=== PATIENT | female | born 1960 | race African-American/Black ===

== ENCOUNTER 2024-07-10 03:37 | Emergency (ER) | payer BC, SELFPAY ==
[2024-07-10 03:40] VITALS: BP 144/77
[2024-07-10 04:49] VITALS: BP 137/78; BMI 30.4
--- NOTE | 2024-07-10 04:54 | EDRN ---
Pt has had L neck, shoulder and upper arm pain x 3 days. No known injury, heavy lifting, exercising. Pain comes and goes, was more severe yesterday and woke pt around 0200 at which time she says her mouth 'felt weird.' Pt has been taking
ibuprofen for this pain which helps the pain - last dose 2200 last night. Pt has chronic lower back pain and says it is unchanged from her usual. Pt adds she has had epigastric pain since last week that comes and goes, most often noted after
eating. Pt ate a salad last night and says she noted pain afterwards. Appetite normal. Pt drank prune juice to help with this pain and says it did not do anything. Pt tried taking pepic AC prior to eating and it did not help. No recent air
travel/long car rides. Pt denies cp, sob, n/v/d/c, urinary symptoms, headache, fever/chills/cough, weakness, dizziness.
--- NOTE | 2024-07-10 04:58 | ED.GENMED ---
History of Present Illness
<FIOR Rivera - Last Filed: 07/11/24 03:33>
General
Chief Complaint: Musculo-Skeletal Complaint
Source: patient
Time Seen by Provider: 07/10/24 04:56
History of Present Illness
History of Present Illness:
A 64-year-old female with a past medical history of migraine hypertension and anemia presents to the emergency department with neck pain for 3 days. She states that the pain covers the left side of her neck her left shoulder and her left arm. She
states that the pain has happened before, occurring multiple times over the last 3 years. She states that over the past 3 years she usually takes ibuprofen which helps to alleviate the symptoms but this time she woke up with 10 out of 10 pain which
was refractory to ibuprofen administration.This time around she describes the pain as sharp and burning with the addition of numbness of the face which began today but has subsided prior to ED arrival.
Patient has a past medical history of hypertension which is well-controlled on amlodipine and losartan. She also has a past medical history of migraine which is controlled with rizatriptan. She has an extensive history of left-sided arm pain and
weakness over the last 3 years all of which point to radiculopathy or atypical migraine.
Past History
<FIOR Rivera - Last Filed: 07/11/24 03:33>
Past History
ED Past Medical History: HTN, Hypercholesterolemia, Psychiatric (Anxiety ) and Other (Anemia, migraines, chronic middle back pain)
ED Past Surgical History:
Social History
Tobacco: Non-smoker
Alcohol: None
Drug: None
Personal:
Living: with family
Employment: Employed
Family History
Family History: Hypertension; Negative CAD
Review of Systems
<FIOR Rivera - Last Filed: 07/11/24 03:33>
Review of Systems
Allergies reviewed?: Yes
Unable to obtain full review of systems at this time due to: dementia
Constitutional: Reports no symptoms
EENT: Reports no symptoms
Respiratory: Reports no symptoms
Cardiac: Reports no symptoms
ABD/GI: Reports no symptoms
: Reports no symptoms
Musculoskeletal: Reports no symptoms
Skin: Reports no symptoms
Neurological: Reports no symptoms
Endocrine: Reports no symptoms
Hematologic/Lymphatic: Reports no symptoms
Psychiatric: Reports no symptoms
Phy Exam
<FIOR Rivera - Last Filed: 07/11/24 03:33>
General Physical Exam
General Presentation: well appearing, mild distress and other (in pain)
General age: appears stated age
General Skin: warm and dry
General Habitus: normal and obese
General Mental: alert
General Hydration: appears well hydrated
Eye Exam
Eye Exam: PERRL
Cardiovascular Exam
Cardiovascular Exam: regular rate/rhythm, no edema, no gallop, no murmur and normal peripheral pulses
Heart Sounds: normal
Pulmonary Exam
Pulmonary Exam: lungs clear, no respiratory distress, no rales, no crackles and no wheezing
Neurological Exam
Neurological Exam: alert and oriented x3
Musculoskeletal Exam
Musculoskeletal Exam: no edema, neuro vasc intact and other (5/5 shoulder strength to flexion and extension, bilaterally 5/ 5 wrist extension and flexion bilaterally Extreme tenderness to palpation on C4-C6 dermatomes on left arm. Sensation to light
touch to C4-C6 dermatomes is intact, bilaterally)
Skin Exam
Skin Exam: normal color, warm/dry and no rash
Course
<FIOR Rivera - Last Filed: 07/11/24 03:33>
Orders/Labs/Results
Orders:
Orders
07/10/24 06:06
Ketorolac [Toradol] 30 mg IV NOW STA
Pantoprazole [Protonix IV] 40 mg IV NOW STA
diazePAM [Valium Injection] 5 mg IV NOW STA
07/10/24 06:07
Electrocardiogram (*1) Urgent
Reason for Study: Abdominal Pain
EKG- Treatment ONCE
07/10/24 06:18
Complete Blood Count/With Diff Urgent
Comprehensive Metabolic Panel Urgent
Lipase Urgent
Abnormal Lab Results
07/10/24
06:18
MCH 26.7 L pg
(27.0-31.0)
MCHC 32.4 L g/dL
(33.0-37.0)
MPV 10.6 H fL
(7.4-10.4)
07/10/24 06:18
07/10/24 06:18
Vital Signs
Initial and Last Documented VS:
Initial Vital Signs
Temp Pulse Resp BP Pulse Ox
97.7 F 78 16 144/77 100
07/10/24 03:40 07/10/24 03:40 07/10/24 03:40 07/10/24 03:40 07/10/24 03:40
Last Documented Vital Signs
Temp Pulse Resp BP Pulse Ox
97.7 F 67 18 106/66 99
07/10/24 03:40 07/10/24 07:58 07/10/24 07:58 07/10/24 07:58 07/10/24 07:58
<Rylie Mckeon DO - Last Filed: 07/10/24 07:52>
Orders/Labs/Results
Orders:
Orders
07/10/24 06:06
Ketorolac [Toradol] 30 mg IV NOW STA
Pantoprazole [Protonix IV] 40 mg IV NOW STA
diazePAM [Valium Injection] 5 mg IV NOW STA
07/10/24 06:07
Electrocardiogram (*1) Urgent
Reason for Study: Abdominal Pain
EKG- Treatment ONCE
07/10/24 06:18
Complete Blood Count/With Diff Urgent
Comprehensive Metabolic Panel Urgent
Lipase Urgent
Abnormal Lab Results
07/10/24
06:18
MCH 26.7 L pg
(27.0-31.0)
MCHC 32.4 L g/dL
(33.0-37.0)
MPV 10.6 H fL
(7.4-10.4)
07/10/24 06:18
07/10/24 06:18
Vital Signs
Initial and Last Documented VS:
Initial Vital Signs
Temp Pulse Resp BP Pulse Ox
97.7 F 78 16 144/77 100
07/10/24 03:40 07/10/24 03:40 07/10/24 03:40 07/10/24 03:40 07/10/24 03:40
Last Documented Vital Signs
Temp Pulse Resp BP Pulse Ox
97.7 F 67 18 106/66 99
07/10/24 03:40 07/10/24 07:58 07/10/24 07:58 07/10/24 07:58 07/10/24 07:58
<FIOR Rivera - Last Filed: 07/11/24 03:33>
*Critical Care Note
Total Time (30-74mins, 75-104mins- exclusive of procedures): Not Applicable
<Rylie Mckeon DO - Last Filed: 07/10/24 07:52>
*Pulse Oximetry
Patient hypoxic: no
*EKG
Interpreted by ED Provider?: Yes
Interpretation: normal
Comparison EKG: no changes (Unchanged from previous May 2023)
Rate: normal
Rhythm: sinus
[place]: normal axis
Interval: normal interval
QRS Pattern: normal QRS
Ischemia: no ischemia
ED Attending Note
<FIOR Rivera - Last Filed: 07/11/24 03:33>
-
Portions of this chart may have been created with voice recognition software.� Occasional wrong word or��sound alike� substitutions may have occurred due to the inherent limitations of voice recognition software.
<Rylie Mckeon DO - Last Filed: 07/10/24 07:52>
ED Attending Note
Patient seen and examined by attending physician: Yes
I performed the substantive portion of visit, reviewed & personally made and approve the management plan that is documented in note by myself or JILL.: Yes
ED Attending Note:
This is a 64-year-old woman with history of hypertension, migraine headaches with history of intermittent left lateral neck to left shoulder pain for which she was hospitalized April [address] of the head, MRI of the brain,
CTA of the head and neck. At that time concern for atypical migraine.
She then returned 1 month later with complaints of left shoulder pain, left scapula and left upper chest pain. CT angiogram of the chest was unremarkable. Relief with Toradol.
She presents this morning with 3-day history of left shoulder pain that radiates to her left lateral neck. Pain radiates down her left arm, is worse with movement of her arm. No insightful injury. She denies headache, denies weakness, no fever
nor chills. No insightful injury nor fall. She is right-hand dominant.
She has been taking ibuprofen with mild to moderate temporary relief until tonight when ibuprofen did not seem to be helpful.
She also notes some epigastric discomfort, somewhat chronic issue but worse over the past few days. No nausea nor vomiting. No diarrhea nor constipation. She denies black or tarry stools. No chest pain, no cough no shortness of breath.
GENERAL: 64-year-old woman appears her stated age, lying on her right side, appears in no acute distress. is accompanying.
EYE: anicteric
NECK: Supple, no midline bony tenderness. Mild tenderness left posterior paracervical region with mild palpable muscular ropiness. There is moderate tenderness left superior trapezius over palpable muscle spasm. No meningismus, no significant
adenopathy.
ENT:oral mucosa is moist. No rhinorrhea.
CARDIAC: Regular rate and rhythm. no murmur. No rub.
LUNGS: Clear breath sounds bilaterally, no acute respiratory distress, no wheezes/rales/rhonchi
ABDOMEN: Soft, nondistended, mild tenderness epigastric region with deep palpation only, no r/g, no cvat. normoactive BS.
NEUROLOGICAL: Alert and oriented x3, no focal neuro deficits. Motor strength is 5/5 bilaterally. Gross sensation is intact.
SKIN: Warm and dry, normal color, skin intact. No rash.
MUSCULOSKELETAL: No C/C/E. peripheral pulses are full and equal b/l. No palpable tenderness to the left shoulder nor upper arm. Full shoulder range of motion with increased superior left trapezius muscle pain with abduction greater than 90 degrees.
PSYCH: Normal and appropriate interaction.
History and exam most consistent with musculoskeletal superior trapezius pain. Less likely ACS.
Extensive neurologic and cardiac, Vascular workup in the past that have all been unremarkable.
She does have an element of epigastric discomfort that has apparently been an ongoing issue but with recent NSAIDs much consider gastritis, other consideration is pancreatitis.
Will check EKG, labs and will medicate with Toradol and Valium. At this point no indication for imaging.
07/10/2024 0738 AM
EKG is unremarkable, unchanged from previous.
Labs are all within normal limits.
Patient feeling markedly improved after Toradol and Valium, resting comfortably.
Will discharge to home with prescription for short course of Celebrex, Protonix for GI protection as well as a short course of at bedtime Valium.
Recommend supportive measures, local heat, rest.
Prompt follow-up with PCP for recheck.
Discharge Plan
Departure
Patient Disposition: Home (Routine Discharge)
Date of Disposition: 07/10/24
Time of Disposition: 07:43
Patient with high blood pressure during this ER visit?: No
Condition: Good
Discharge Problem:
Acute left trapezius myofascitis, Gastritis
Instructions: Muscle Strain (DC), Neck Stretches, Gastritis ED
Prescriptions:
New
celecoxib [Celebrex] 200 mg capsule
200 mg PO BID Qty: 30 0RF
pantoprazole [Protonix] 40 mg tablet,delayed release (DR/EC)
40 mg PO DAILY Qty: 30 0RF
diazepam [Valium] 5 mg tablet
5 mg PO HS PRN (Reason: muscle spasm) Qty: 7 0RF
No Action
losartan 50 MG tablet
50 mg PO DAILY
aspirin 81 MG tablet,delayed release (DR/EC)
81 mg PO DAILY
amlodipine 5 mg Tablet
5 mg PO DAILY
Referrals:
Rosio Harrington, [Family Provider] - Call in 1-3 days for appt
Interventions
Interventions:
*Risk Screen - Suicide Last Done: 07/10/24 03:40
*General Assessment Last Done: 07/10/24 04:49
*Neglect/Abuse Screening Last Done: 07/10/24 03:40
ED- Fall Risk Assessment Last Done: 07/10/24 04:49
*ED COVID-19 Vaccine History Last Done: 07/10/24 04:49
*Nursing Disposition Last Done: 07/10/24 08:08
ED-Musculoskeletal Assessment Last Done: 07/10/24 04:49
Discharge Date and Time
Discharge Date/Time: 07/10/24 08:09
Print Language: GEORGI[place]
[2024-07-10 05:00] VITALS: BP 145/80
[2024-07-10] MEDS: PROTONIX IV 40 MG IV (06:21)
[2024-07-10] MEDS: TORADOL 30 MG IV (06:23)
[2024-07-10] MEDS: VALIUM INJECTION 5 MG IV (06:25)
[2024-07-10 06:30] VITALS: BP 131/73
[2024-07-10 06:31] LABS: % Basophils 1.1 % (0-2); % Eosinophils 2.9 % (0-6); % Immature Granulocytes 0.4 % (0-0.5); % Lymphocytes 40.2 % (20.5-51.1); % Monocytes 6.9 % (1.7-9.3); % Neutrophils 48.5 % (42.2-75.2); Absolute Basophils 0.1 10^3/uL (0-0.2); Absolute Eosinophils 0.1 10^3/uL (0-0.7); Absolute Lymphocytes 1.9 10^3/uL (1.2-3.4); Absolute Monocytes 0.3 10^3/uL (0.1-0.6); Absolute Neutrophils 2.3 10^3/uL (1.4-6.5); Hematocrit 40.4 % (37.0-47.0); Hemoglobin 13.1 g/dL (12.0-16.0); Mean Corp Hgb Conc. 32.4 g/dL (33.0-37.0); Mean Corpuscular Hgb 26.7 pg (27.0-31.0); Mean Corpuscular Volume 82.3 fL (81.0-99.0); Mean Platelet Volume 10.6 fL (7.4-10.4); Nucleated Red Blood Cells % 0 %; Platelet Count 231 10^3/uL (130-400); Red Blood Cell Count 4.91 10^6/uL (4.20-5.40); Red Cell Dist. Width 13.9 % (11.5-14.5); White Blood Cell Count 4.8 10^3/uL (4.8-10.8)
[2024-07-10 06:46] LABS: ALT (SGPT) 28 U/L (0-35); AST (SGOT) 31 U/L (14-36); Albumin 4.6 g/dl (3.5-5.0); Alkaline Phosphatase 91 U/L (38-126); Blood Urea Nitrogen 13 mg/dl (7-17); Calcium 10.1 mg/dl (8.4-10.2); Carbon Dioxide 28 mmol/L (22-30); Chloride 106 mmol/L (98-107); Estimated Creatinine Clearance 76 ml/min; Glucose 99 mg/dl (70-99); Lipase 109 U/L (23-300); Potassium 4.5 mmol/L (3.5-5.1); Sodium 144 mmol/L (135-145); Total Bilirubin 0.4 mg/dl (0.2-1.3); Total Protein 7.3 g/dl (6.3-8.2); eGFR > 60.00
[2024-07-10 07:58] VITALS: BP 106/66
== END 2024-07-10 08:09 | disposition home or self-care (01) ==
LOC: EMR 03:37
PROVIDERS: EMERGENCY PHYSICIAN Emergency Medicine; FAMILY PHYSICIAN Family Medicine
DX: M60.9 Myositis, unspecified (principal); K29.70 Gastritis, unspecified, without bleeding; I10 Essential (primary) hypertension
CPT/HCPCS: 99284; 96374; 96375 ×2; 80053; 83690; 85025; 93005

== ENCOUNTER 2024-12-18 21:18 | Emergency (ER) | payer SELFPAY ==
[2024-12-18 21:23] VITALS: BP 171/84
--- NOTE | 2024-12-18 23:50 | ED.GENMED ---
History of Present Illness
General
Chief Complaint: Head Injury
Source: patient
Time Seen by Provider: 12/18/24 23:41
History of Present Illness
History of Present Illness:
64-year-old female presents to the emergency room complaining of headache, blurred vision after striking her head yesterday. 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 No loss of consciousness that the patient
has not felt herself since then. Headache seems worse today than yesterday. No nausea, vomiting, focal weakness. Patient does not take any oral anticoagulants.
Past History
Past History
ED Past Medical History: HTN, Hypercholesterolemia, Psychiatric (Anxiety ) and Other (Anemia, migraines, chronic middle back pain)
ED Past Surgical History:
Social History
Tobacco: Non-smoker
Alcohol: None
Drug: None
Personal:
Living: with family
Employment: Employed
Family History
Family History: Hypertension; Negative CAD
Phy Exam
Physical Exam
Physical Exam:
General: Awake, Alert, Oriented X3. No acute distress.
Vitals: unremarkable
Head: Atraumatic
Eyes: Pupils equal, EOMI
Throat: Airway intact, no exudates
Neck: Trachea midline, no tenderness to palpation of the midline cervical spine
Lungs: Clear and equal b/l
Heart: Regular rate, no murmurs
Abd: Soft, Nontender, No pulsatile mass
Neuro: Cranial nerves intact, muscle strength equal bilaterally, cerebellar exam normal
Skin: Warm, dry, no rash
Extremities: pulses equal b/l, no edema
Course
Orders/Labs/Results
Orders:
Orders
12/19/24 00:30
CT Head W/o Iv Contrast Urgent
Reason For Exam: head injury
Vital Signs
Initial and Last Documented VS:
Initial Vital Signs
Temp Pulse Resp BP Pulse Ox
98.1 F 82 20 171/84 99
12/18/24 21:23 12/18/24 21:23 12/18/24 21:23 12/18/24 21:23 12/18/24 21:23
Last Documented Vital Signs
Temp Pulse Resp BP Pulse Ox
98.1 F 70 16 139/69 99
12/18/24 21:23 12/19/24 00:46 12/19/24 00:46 12/19/24 00:46 12/19/24 00:46
MDM/Problems Addressed
Differential Diagnosis Includes:
Contusion, concussion, subdural
MDM/Problems Addressed:
Head CT shows no acute abnormalities. Patient stable for discharge home
Chronic conditions affecting care: HTN
*Radiology
Radiology exam reviewed: radiology read reviewed
*Pulse Oximetry
Patient hypoxic: no
*Critical Care Note
Total Time (30-74mins, 75-104mins- exclusive of procedures): Not Applicable
ED Attending Note
-
Portions of this chart may have been created with voice recognition software.� Occasional wrong word or��sound alike� substitutions may have occurred due to the inherent limitations of voice recognition software.
Discharge Plan
Departure
Patient Disposition: Home (Routine Discharge)
Date of Disposition: 12/19/24
Time of Disposition: 01:05
Patient with high blood pressure during this ER visit?: Yes
Condition: Good
Discharge Problem:
Head injury
Instructions: Head Injury in Adults (DC), BLOOD PRESSURE
Prescriptions:
No Action
losartan 50 MG tablet
50 mg PO DAILY
aspirin 81 MG tablet,delayed release (DR/EC)
81 mg PO DAILY
amlodipine 5 mg Tablet
5 mg PO DAILY
celecoxib [Celebrex] 200 mg capsule
200 mg PO BID Qty: 30 0RF
pantoprazole [Protonix] 40 mg tablet,delayed release (DR/EC)
40 mg PO DAILY Qty: 30 0RF
diazepam [Valium] 5 mg tablet
5 mg PO HS PRN (Reason: muscle spasm) Qty: 7 0RF
Referrals:
Rosio Harrington DO [Family Provider] -
Stand Alone Forms: Return to Work
Interventions
Interventions:
*Risk Screen - Suicide Last Done: 12/18/24 23:41
*General Assessment Last Done: 12/18/24 21:23
*Neglect/Abuse Screening Last Done: 12/18/24 23:41
*ED- Fall Risk Assessment Last Done: 12/18/24 23:41
*ED COVID-19 Vaccine History Last Done: 12/18/24 23:41
ED- Neurological Assessment Last Done: 12/18/24 23:41
ED-Skin Assessment Last Done: 12/18/24 23:41
Discharge Date and Time
Print Language: [place]
[2024-12-19 00:46] VITALS: BP 139/69
== END 2024-12-19 01:25 | disposition home or self-care (01) ==
LOC: EMR 21:18
PROVIDERS: EMERGENCY PHYSICIAN Emergency Medicine; FAMILY PHYSICIAN Family Medicine
DX: S09.90XA Unspecified injury of head, initial encounter (principal); W22.03XA Walked into furniture, initial encounter; I10 Essential (primary) hypertension; E78.00 Pure hypercholesterolemia, unspecified; F41.9 Anxiety disorder, unspecified; D64.9 Anemia, unspecified; Z82.49 Family history of ischemic heart disease and other diseases of the circulatory system
CPT/HCPCS: 99284; 70450